=== PATIENT | female | born 1965 | race African-American/Black ===

== ENCOUNTER 2023-05-12 14:38 | Outpatient (AMB) | payer MEDICAID, SELFPAY ==
--- NOTE | 2023-05-12 14:40 | A.OFFVIS_ITS ---
Intake Vital Signs 05/12/23 14:43 Height 5 ft 5 in Weight 252 lb 4 oz BMI 42.0 BP 140/84 H Blood Pressure Location Rt brachial Position Sitting Pulse 76 Pulse Source Pulse Oximeter Pulse Oximetry (%) 98 Oxygen Delivery Method Room Air Intake Visit Reasons: E-SCIENTIFIC AIDE: Insomnia/Snoring - Confirmed Intake Note: Pt presents today cc insomnia and snoring Allergies Unable to Assess Allergy (Unverified 05/12/23 14:46) HPI HPI Comments History of Present Illness Details 58 y/o female patient presents for new i n-person visit for sleep consultation. Pt reports difficulty falling asleep and staying sleep. She watches movie until late night, and falls asleep and also wakes up every couple of hours. She has frequent gasping arousals, and having daytime sleepiness. She used to smoke a pack a day, now she cut down to 10 cigarets a day. Pt states that her mind is racing and can't stop thinking. Sleep questionnaire: Have you ever been diagnosed with a sleep disorder? Insomnia. Have you ever had a sleep study in the past? No. Have you ever been treated for a sleep disorder? Yes, medication. Do you take medications for a sleep disorder? Trazodone 25 mg. Do you snore? Don't know. Do you wake up gasping at night? Yes. Do you have episodes of apneas? No. If yes, are they witnessed? No, sleeps alone. Do you have episodes of nocturnal chest pain or dyspnea? Yes. Do you have difficulty initiating sleep? Yes. Do you have difficulty maintaining sleep? Yes. Do you wake up tired? Yes. Do you have headaches upon awakening? Yes. Do you wake up with dry mouth or throat? Yes. Do you have GERD? Yes. Do you have nocturia? Yes. Do you have nocturnal leg cramps? Yes, sometimes. Do you have symptoms of restless legs? No. Do you act out your dreams? No. Sleep hygiene questionnaire: What is your usual sleep routine? Usual bedtime is at N/A; Usual wake up time is at 5 am. Do you take naps? No. Is your sleep environment cool, dark, and quiet? Yes. Do you exercise? No. Do you take caffeine or other stimulants? Tea. Do you use electronics in bed? Yes, watches TV until she falls asleep. What is your work schedule? 8 am to 2 pm. Hypersomnolence questionnaire: Do you have daytime tiredness or fatigue? Yes. Do you easily fall asleep when inactive? No. Have you ever had episodes of sudden weakness? No. Have you ever had episodes of sudden weakness associated with strong emotions? No. PFSH Family History (Updated 05/12/23 @ 14:55 by Darcy Patel) Mother Cervical cancer Review of Systems Const All systems reviewed & are unremarkable except as noted in HPI and below ENT Reports Normal hearing present Neuro Reports Normal hearing present Physical Exam Vital Signs: Last Vital Signs Pulse 76 05/12/23 14:43 BP 140/84 H 05/12/23 14:43 Pulse Ox 98 05/12/23 14:43 Oxygen Delivery Method Room Air 05/12/23 14:43 BMI result Body Mass Index 42.0 Const General: cooperative and tired appearing Nutritional Appearance: obese Orientation/consciousness: patient oriented x3 Neck Neck: Yes full ROM and Yes supple Resp Effort & Inspection: normal respiratory effort and able to speak in complete sentences Neuro General: patient oriented x3 Cranial nerves: Yes Bilaterally intact EOM present, Yes Normal facial strength present, Yes Midline tongue present, Yes Symmetric palate elevation present, Yes Normal hearing present, Yes Ability to bilaterally rotate head present and Yes Ability to bilaterally elevate shoulders present Cognition (Neuro): normal cognition Gait exam (Neuro): Antalgic gait present Motor exam (neuro): 5/5 motor strength present throughout, Pronator motor function not present and no tremor noted Psych Appearance: grossly normal Mental Status: mental status grossly normal Speech and movement: Normal speech and movement present Affect: normal affect Attitude: cooperative Assessment & Plan Assessment & Plan (1) Obesity, Class III, BMI 40-49.9 (morbid obesity): Code(s): E66.01 - Morbid (severe) obesity due to excess calories (2) Daytime sleepiness: Code(s): R40.0 - Somnolence (3) Snoring: Code(s): R06.83 - Snoring (4) Difficulty sleeping: Code(s): G47.9 - Sleep disorder, unspecified (5) Insomnia: Code(s): G47.00 - Insomnia, unspecified Plan Pt is advised to undergo in lab sleep study to assess for sleep apnea. Will f/u with pt after study to discuss results and appropriate treatment options. Sleep hygiene education provided. Advised patient to limit watching TV before bedtime, and reduce smoking in the evening. May try Calm Sleep magnesium supplement to promote sleep. Wt reduction advised. Pt to call with any worsening concerns or questions. Orders: Orders RT PSG in-lab sleep study Today E66.01 - Morbid (severe) obesity due to excess calories, G47.00 - Insomnia, unspecified, G47.9 - Sleep disorder, unspecified, R06.83 - Snoring, R40.0 - Somnolence Coding Level of Care Code New Pt Level 3 (70345) Diagnoses Obesity, Class III, BMI 40-49.9 (morbid obesity) E66.01 Daytime sleepiness R40.0 Snoring R06.83 Difficulty sleeping G47.9 Insomnia G47.00
[2023-05-12 14:43] VITALS: BP 140/84; PULSE 76; O2SAT 98; BMI 42.0
== END 2023-05-12 15:14 | disposition home or self-care (01) ==
PROVIDERS: PCP Nurse Practitioner; Visit Provider Nurse Practitioner Family
DX: E66.01 Morbid (severe) obesity due to excess calories (principal); R40.0 Somnolence; R06.83 Snoring; G47.9 Sleep disorder, unspecified; G47.00 Insomnia, unspecified
CPT/HCPCS: 99203

== ENCOUNTER → 2023-05-12 14:38 | Outpatient (BNVA) | payer MEDICAID, SELFPAY | PROVIDERS: PCP Nurse Practitioner; Visit Provider Nurse Practitioner Family | DX: G47.00 Insomnia, unspecified (principal); G47.9 Sleep disorder, unspecified; R06.83 Snoring; R40.0 Somnolence; E66.01 Morbid (severe) obesity due to excess calories; Z68.41 Body mass index [BMI] 40.0-44.9, adult | CPT/HCPCS: 99212 ==

== ENCOUNTER → 2023-07-09 19:30 | Outpatient (REF) | payer MEDICAID, SELFPAY | LOC: HO.SL 19:30 | PROVIDERS: PCP Nurse Practitioner; Visit Provider Nurse Practitioner Family | DX: G47.00 Insomnia, unspecified (principal); R06.83 Snoring; R40.0 Somnolence; E66.01 Morbid (severe) obesity due to excess calories; G47.33 Obstructive sleep apnea (adult) (pediatric) | CPT/HCPCS: 95810 ==

== ENCOUNTER → 2023-07-10 00:48 | Outpatient (BNV) | payer MEDICAID, SELFPAY | PROVIDERS: PCP Nurse Practitioner; Visit Provider Psychiatry & Neurology Neurology | DX: G47.33 Obstructive sleep apnea (adult) (pediatric) (principal) | CPT/HCPCS: 95810 ==

== ENCOUNTER → 2023-09-01 19:30 | Outpatient (REF) | payer MEDICAID, SELFPAY | LOC: HO.SL 19:30 | PROVIDERS: PCP Nurse Practitioner; Visit Provider Nurse Practitioner Family | DX: G47.33 Obstructive sleep apnea (adult) (pediatric) (principal) | CPT/HCPCS: 95811 ==

== ENCOUNTER → 2023-09-01 22:08 | Outpatient (BNV) | payer MEDICAID, SELFPAY | PROVIDERS: PCP Nurse Practitioner; Visit Provider Psychiatry & Neurology Neurology | DX: G47.33 Obstructive sleep apnea (adult) (pediatric) (principal) | CPT/HCPCS: 95811 ==

== ENCOUNTER 2023-09-09 14:53 | Outpatient (AMB) | payer MEDICAID, SELFPAY ==
--- NOTE | 2023-09-09 14:57 | A.OFFVIS_ITS ---
Intake Vital Signs 09/09/23 15:08 Height 5 ft 5 in Weight 252 lb 8 oz BMI 42.0 BP 134/80 Blood Pressure Location Lt brachial Position Sitting Pulse 80 Pulse Source Pulse Oximeter Pulse Oximetry (%) 98 Oxygen Delivery Method Room Air Intake Visit Reasons: 4 mnts f/u appt for insomnia-CONF Intake Note: Patients presents for 4 month f/u. Allergies Unable to Assess Allergy (Verified 09/09/23 15:04) HPI HPI Comments History of Present Illness Details 58 y/o female patient presents for follo w up of sleep study. The PSG sleep study result was significant for a severe degree of sleep apnea with increased severity in REM. The AHI was 43/hr, REM AHI was 86/hr and oxygen toño was 78%. Pt underwent CPAP titration study, and the result is pending. Pt reports she slept really well during the CPAP titration study. Pt still smokes cigarettes before bedtime to relax and sleep. PFSH Family History Mother Cervical cancer Social History (Updated 09/09/23 @ 15:08 by Zoe Wheeler CMA) Alcohol intake: current Comment: Rarely Patient Tobacco Use Status: Former Tobacco user Tobacco use type: Cigarette Cigarettes Per Day: 7 Years Smoked: 40 Review of Systems Const All systems reviewed & are unremarkable except as noted in HPI and below ENT Reports Normal hearing present Neuro Reports Normal hearing present Physical Exam Vital Signs: Last Vital Signs Pulse 80 09/09/23 15:08 BP 134/80 09/09/23 15:08 Pulse Ox 98 09/09/23 15:08 Oxygen Delivery Method Room Air 09/09/23 15:08 BMI result Body Mass Index 42.0 Const General: cooperative and tired appearing Nutritional Appearance: obese Orientation/consciousness: patient oriented x3 Neck Neck: Yes full ROM and Yes supple Resp Effort & Inspection: normal respiratory effort and able to speak in complete sentences Neuro General: patient oriented x3 Cranial nerves: Yes Bilaterally intact EOM present, Yes Normal facial strength present, Yes Midline tongue present, Yes Symmetric palate elevation present, Yes Normal hearing present, Yes Ability to bilaterally rotate head present and Yes Ability to bilaterally elevate shoulders present Cognition (Neuro): normal cognition Gait exam (Neuro): Antalgic gait present Motor exam (neuro): 5/5 motor strength present throughout, Pronator motor function not present and no tremor noted Psych Appearance: grossly normal Mental Status: mental status grossly normal Speech and movement: Normal speech and movement present Affect: normal affect Attitude: cooperative Assessment & Plan Assessment & Plan (1) ANGELINE (obstructive sleep apnea): Comment: Severe degree of sleep apnea with increased severity in REM sleep. AHI was 43/hr, REM AHI was 86/hr and oxygen toño was 78% Code(s): G47.33 - Obstructive sleep apnea (adult) (pediatric) Plan Titration study result was pending. Will order CPAP when the result available. Stressed CPAP compliance, use CPAP nightly and more than 4hrs. Advised patient to cut down smoking and practice good sleep hygiene. Coding Level of Care Code Est Pt Level 3 (68645) Diagnoses ANGELINE (obstructive sleep apnea) G47.33
[2023-09-09 15:08] VITALS: BP 134/80; PULSE 80; O2SAT 98; BMI 42.0
== END 2023-09-09 15:20 | disposition home or self-care (01) ==
PROVIDERS: PCP Nurse Practitioner; Visit Provider Nurse Practitioner Family
DX: G47.33 Obstructive sleep apnea (adult) (pediatric) (principal)
CPT/HCPCS: 99213

== ENCOUNTER → 2023-09-09 14:53 | Outpatient (BNVA) | payer MEDICAID, SELFPAY | PROVIDERS: PCP Nurse Practitioner; Visit Provider Nurse Practitioner Family | DX: G47.33 Obstructive sleep apnea (adult) (pediatric) (principal) | CPT/HCPCS: 99212 ==

== ENCOUNTER 2023-11-10 10:19 | Outpatient (AMB) | payer MEDICAID, SELFPAY ==
--- NOTE | 2023-11-10 10:19 | MHC.OFFVIS ---
Vital Signs 11/10/23 10:21 Height 5 ft 5 in Weight 255 lb BMI 42.4 BP 126/82 Blood Pressure Location Rt brachial Position Sitting Pulse 65 Pulse Source Pulse Oximeter Pulse Oximetry (%) 99 Oxygen Delivery Method Room Air Intake Visit Reasons: f/u insomnia - CONF w/address Intake Note: Patient presents for insomnia. Allergies Unable to Assess Allergy (Verified 11/10/23 10:22) HPI Comments Details: 58 y/o female patient presents for follow up of sleep study. The PSG sleep study result was significant for a severe degree of sleep apnea with increased severity in REM. The AHI was 43/hr, REM AHI was 86/hr and oxygen toño was 78%. Pt underwent CPAP titration study, and started CPAP at 8cmH2O. The CPAP compliance and therapy response (10/11/23-11/09/23) reviewed. The usage days 100% and the average usage hours 8 hrs. The residual AHI was 0.6/hr. Pt still smokes cigarettes before bedtime to relax and sleep. She sleeps well with CPAP for 7-8 hrs, rested, and daytime sleepiness has improved. PFSH Family History Mother Cervical cancer Social History Alcohol intake: current Comment: Rarely Patient Tobacco Use Status: Former Tobacco user Tobacco use type: Cigarette Cigarettes Per Day: 7 Years Smoked: 40 Review of Systems Const All systems reviewed & are unremarkable except as noted in HPI and below ENT Reports Normal hearing present Neuro Reports Normal hearing present Physical Exam Vital Signs: Last Vital Signs Pulse 65 11/10/23 10:21 BP 126/82 11/10/23 10:21 Pulse Ox 99 11/10/23 10:21 Oxygen Delivery Method Room Air 11/10/23 10:21 BMI result Body Mass Index 42.4 Const General: cooperative Nutritional Appearance: obese Orientation/consciousness: patient oriented x3 Neck Neck: Yes full ROM and Yes supple Resp Effort & Inspection: normal respiratory effort and able to speak in complete sentences Neuro General: patient oriented x3 Cranial nerves: Yes Bilaterally intact EOM present, Yes Normal facial strength present, Yes Midline tongue present, Yes Symmetric palate elevation present, Yes Normal hearing present, Yes Ability to bilaterally rotate head present and Yes Ability to bilaterally elevate shoulders present Cognition (Neuro): normal cognition Gait exam (Neuro): Antalgic gait present Motor exam (neuro): 5/5 motor strength present throughout, Pronator motor function not present and no tremor noted Psych Appearance: grossly normal Mental Status: mental status grossly normal Speech and movement: Normal speech and movement present Affect: normal affect Attitude: cooperative Assessment & Plan Assessment & Plan (1) ANGELINE (obstructive sleep apnea): Comment: Severe degree of sleep apnea with increased severity in REM sleep. AHI was 43/hr, REM AHI was 86/hr and oxygen toño was 78% Code(s): G47.33 - Obstructive sleep apnea (adult) (pediatric) Category: Medical Plan Advised patient to continue to use CPAP at 8cmH2O as patient experiences good clinical effects, better quality sleep and daytime sleepiness has resolved. Stressed compliance, use CPAP nightly and more than 4 hrs. Advised patient to reduce smoking. Coding Level of Care Code Est Pt Level 3 (17947) Diagnoses ANGELINE (obstructive sleep apnea) G47.33
[2023-11-10 10:21] VITALS: BP 126/82; PULSE 65; O2SAT 99; BMI 42.4
== END 2023-11-10 10:38 | disposition home or self-care (01) ==
PROVIDERS: Absent Provider Nurse Practitioner Family; PCP Nurse Practitioner; Visit Provider Nurse Practitioner Family
DX: G47.33 Obstructive sleep apnea (adult) (pediatric) (principal)
CPT/HCPCS: 99213

== ENCOUNTER → 2023-11-10 10:19 | Outpatient (BNVA) | payer MEDICAID, SELFPAY | PROVIDERS: Absent Provider Nurse Practitioner Family; PCP Nurse Practitioner; Visit Provider Nurse Practitioner Family | DX: G47.33 Obstructive sleep apnea (adult) (pediatric) (principal) | CPT/HCPCS: 99212 ==

== ENCOUNTER 2024-05-31 09:33 | Outpatient (AMB) | payer OTHER, SELFPAY ==
[2024-05-31 09:42] VITALS: BP 124/80; PULSE 72; O2SAT 99; BMI 42.8
--- NOTE | 2024-05-31 09:42 | A.OFFVIS_ITS ---
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 Pt reports she is using her CPAP nightly or during her naps. Her sleep schedule is varied, she states that this is because she does not have anything to do. However, overall she is sleeping better overall and feels the CPAP helps. She notes that she has had migraine since childhood. Her migraine- can see colorful or black spots, right or left and frontal throbbing or tightness or pounding (like someone has just hit her) pain a/w photophobia, phonophobia, sounds like wind blowing, congestion/nasal drip. She reports since she is sleeping more and using her CPAP, she is having less bothersome migraine attacks. She does not like to take medications in general, but states she is open to trying migraine tx and she is open to using devices. She is having 2-3 headache days per week. One of her son's has migraines his whole life as well. Has remote h/o gastritis from frequent use of NSAIDs. BP normotensive. No known CAD. She does still smoke cigarettes- 4-8 per day. [facility] Compliance Report Usage 05/01/2024 - 05/30/2024 Usage days 30/30 days (100%) >= 4 hours 30 days (100%) Average usage (days used) 8 hours 21 minutes AirSense 10 AutoSet Serial number [id number] Mode CPAP Set pressure 8 cmH2O EPR Fulltime EPR level 2 Therapy Leaks - L/min Median: 0.0 95th percentile: 5.7 Maximum: 83.1 Events per hour AI: 1.1 HI: 0.2 AHI: 1.3 Apnea Index Central: 0.0 Obstructive: 0.3 Unknown: 0.8 RERA Index 0.3 PFSH Family History Mother Cervical cancer Social History Alcohol intake: current Comment: Rarely Patient Tobacco Use Status: Former Tobacco user Tobacco use type: Cigarette Cigarettes Per Day: 7 Years Smoked: 40 Physical Exam Vital Signs: Last Vital Signs Pulse 72 05/31/24 09:42 BP 124/80 05/31/24 09:42 Pulse Ox 99 05/31/24 09:42 Oxygen Delivery Method Room Air 05/31/24 09:42 BMI result Body Mass Index 42.8 Const General: no acute distress Orientation/consciousness: patient oriented x3 HEENT Other: Mallampati stage Resp Effort & Inspection: normal respiratory effort and able to speak in complete sentences Neuro Other: Photophobia General: patient oriented x3 and moves all extremities Cranial nerves: Yes CN's II-XII intact bilaterally Gait exam (Neuro): Normal gait present Motor exam (neuro): 5/5 motor strength present throughout Psych Appearance: grossly normal Mental Status: mental status grossly normal Speech and movement: Normal speech and movement present Attitude: cooperative Assessment & Plan Assessment & Plan (1) ANGELINE (obstructive sleep apnea): Comment: Severe degree of sleep apnea with increased severity in REM sleep. AHI was 43/hr, REM AHI was 86/hr and oxygen toño was 78% Code(s): G47.33 - Obstructive sleep apnea (adult) (pediatric) Category: Medical (2) Migraine with aura: Code(s): G43.109 - Migraine with aura, not intractable, without status migrainosus Category: Medical Plan For ANGELINE: Continue CPAP 8 cmH2O w/ EPR 2 nightly > 4 hours, as pt continues to have good clinical effect from use.. Clean CPAP machine and supplies routinely. Change CPAP supplies routinely. We have advised you to have the following exams: For overall headache management: It is important to practice good self-care, including but not limited to eating a healthy diet, drinking enough fluids (typically 64 oz per day), maintaining a good sleep routine, and engaging in regular physical activity (typically 30-45 minutes of moderate physical activity 5 days per week). Light sensitivity tips: Blue light filtering glasses, green glasses, green light therapy have all been shown to reduce light sensitivity. Information shared on enuromodulation devices- suach as Cefaly or HeadaTerm 2 eTNS devices. For acute headache treatment: It is important to take as needed acute medications at the first sign of headache, however you want to avoid taking most as needed headache too often as this can lead to medication overuse/adaptation headaches. Trial Sumatriptan 100mg tab, 1/2 - 1 tab (50-100mg) at onset of headache, may repeat in 2 hours. Max of 2 tabs (200mg) per 24 hours. May adjunct with OTC Tylenol 650mg q 4 hours, Ibuprofen 600mg q 6 hours, or Naproxen 440mg q 12 hrs prn. Potential adverse effects of triptans, include but are not limited to nausea, fatigue, chest tightness/tingling (usually passes within a few minutes), medication overuse headaches. Previous acute migraine medication trials: No prescription trails at this time. Acute migraine medication contraindications: [None at this time. For headache prevention medication: Preventative medications should be taken routinely as prescribed for best effect, it may take several weeks to see full effect. Start Riboflavin 400mg qam Start Magnesium 400mg qhs Previous migraine prevention medication trials: None at this time Migraine prevention medication contraindications: None at this time Pt to follow-up in 6 months or sooner prn. Medications: New riboflavin (vitamin B2) 400 mg PO DAILY 30 days 30 tabs 6RF magnesium oxide may hold for loose stools 400 mg PO BEDTIME 30 days 30 tabs 6RF sumatriptan succinate (0.5 - 1 x 100 mg) 50 - 100 mg orally at onset of headache, may repeat in 2 hrs PRN; max 2 tabs per day or 4 tabs/week (may take with Tylenol or Ibuprofen) 30 days 12 tabs 6RF migraine headache Coding Level of Care Code Est Pt Level 4 (65351) Diagnoses ANGELINE (obstructive sleep apnea) G47.33 Migraine with aura G43.109
== END 2024-05-31 10:41 | disposition home or self-care (01) ==
PROVIDERS: PCP Nurse Practitioner; Visit Provider Nurse Practitioner Family
DX: G47.33 Obstructive sleep apnea (adult) (pediatric) (principal); G43.109 Migraine with aura, not intractable, without status migrainosus
CPT/HCPCS: 99214

== ENCOUNTER → 2024-05-31 09:33 | Outpatient (BNVA) | payer OTHER, SELFPAY | PROVIDERS: PCP Nurse Practitioner; Visit Provider Nurse Practitioner Family | DX: G47.33 Obstructive sleep apnea (adult) (pediatric) (principal); G43.109 Migraine with aura, not intractable, without status migrainosus | CPT/HCPCS: 99212 ==

== ENCOUNTER 2024-11-29 10:05 | Outpatient (AMB) | payer OTHER, SELFPAY ==
--- NOTE | 2024-11-29 10:48 | A.OFFVIS_ITS ---
Vital Signs 11/29/24 10:49 Height 5 ft 5 in BP 126/82 Blood Pressure Location Lt brachial Position Sitting Pulse 61 Pulse Source Pulse Oximeter Pulse Oximetry (%) 98 Oxygen Delivery Method Room Air Intake Visit Reasons: Follow Up 6mo Intake Note: Patient presents 6 month follow up for ANGELINE/Migraines- compliance in chart. Adult Nurse Practitioner Required: No Accompanied by: Self / Same As Patient Allergies Unable to Assess Allergy (Verified 11/29/24 10:49) Medication List - Last Reconciled 11/29/24 by CLIFTON Ramirez acetaminophen (Tylenol) 325 mg PO QID PRN cetirizine (All Day Allergy (cetirizine)) 10 mg PO DAILY PRN diclofenac sodium 1% (Arthritis Pain (diclofenac)) 2 grams topical QID fluticasone furoate 50 mcg/actuation inhalation magnesium oxide 400 mg PO BEDTIME 30 days ondansetron 8 mg PO Q12H riboflavin (vitamin B2) 400 mg PO DAILY 30 days sumatriptan succinate 50 - 100 mg orally at onset of headache, may repeat in 2 hrs PRN; max 2 tabs per day or 4 tabs/week (may take with Tylenol or Ibuprofen) 30 days trazodone 25 mg PO DAILY HPI Comments Details: 59-yr-old female presents for follow-up visit of sleep apnea. Pt recently underwent a ? Cyst excision from base of left palm (at base of 2nd /3rd fingers), which was healing well but pt states incision recently dehisced when she was trying to open medication bottle- by Dr Reji Joyce at [place]. Pt reports she is using her CPAP nightly or during her naps. Her sleep schedule is varied, she states that this is because she does not have anything to do. However, overall she is sleeping better overall and feels the CPAP helps. She is having less migraine attacks, now 1 attack per week, which lasts 2 days. She has purchased arias-tinted FL-41 blue light blocking glasses. She plans to buy herself a migraine cooling cap. She did not receive riboflavin. She states the sumatriptan is helpful, but makes her sleepy- which she does not mind, as she lays down and applies her CPAP. She notes that she has had migraine since childhood. Baseline migraine- can see colorful or black spots, right or left and frontal throbbing or tightness or pounding (like someone has just hit her) pain a/w photophobia, phonophobia, sounds like wind blowing, congestion/nasal drip. Family h/o headache: One of her son's has migraines his whole life as well. Pertinent PMH: Has remote h/o gastritis from frequent use of NSAIDs. Tobacco use. BP remains normotensive. No known history of CAD. [facility] Compliance Report Usage 08/24/2024 - 11/21/2024 Overall usage days 100% Usage > 4 hours 99% Average usage (days used) 8 hours 26 minutes AirSense 10 AutoSet Serial number [id number] Mode CPAP Set pressure 8 cmH2O w/ EPR 2 Median Leaks - 0 L/min Residual AHI: 0.7/hour PFSH Surgical History (Updated 11/29/24 @ 10:51 by Gabriela Escobar CMA) H/O hand surgery Family History Mother Cervical cancer Social History Alcohol intake: current Comment: Rarely Patient Tobacco Use Status: Former Tobacco user Tobacco use type: Cigarette Cigarettes Per Day: 7 Years Smoked: 40 Physical Exam Vital Signs: Last Vital Signs Pulse 61 11/29/24 10:49 BP 126/82 11/29/24 10:49 Pulse Ox 98 11/29/24 10:49 Oxygen Delivery Method Room Air 11/29/24 10:49 Const General: no acute distress Orientation/consciousness: patient oriented x3 HEENT Other: Left 2nd and 3rd fingers taped together Resp Effort & Inspection: normal respiratory effort and able to speak in complete sentences Neuro General: patient oriented x3 and moves all extremities Cranial nerves: Yes CN's II-XII intact bilaterally Gait exam (Neuro): Normal gait present Motor exam (neuro): 5/5 motor strength present throughout Psych Appearance: grossly normal Mental Status: mental status grossly normal Speech and movement: Normal speech and movement present Attitude: cooperative Assessment & Plan Assessment & Plan (1) ANGELINE (obstructive sleep apnea): Comment: Severe degree of sleep apnea with increased severity in REM sleep. AHI was 43/hr, REM AHI was 86/hr and oxygen toño was 78% Code(s): G47.33 - Obstructive sleep apnea (adult) (pediatric) Category: Medical (2) Migraine with aura: Code(s): G43.109 - Migraine with aura, not intractable, without status migrainosus Category: Medical Qualifiers: Status migrainosus presence: without status migrainosus Intractability: not intractable Qualified Code(s): G43.109 - Migraine with aura, not intractable, without status migrainosus Plan For ANGELINE: Continue CPAP 8 cmH2O w/ EPR 2 nightly > 4 hours, as pt continues to have good clinical effect from use.. Clean CPAP machine and supplies routinely. Change CPAP supplies routinely. Use distilled water in your CPAP water reservoir. For overall headache management: It is important to practice good self-care, including but not limited to eating a healthy diet, drinking enough fluids (typically at least 64 oz per day), maintaining a good sleep routine, and engaging in regular physical activity (typically 30-45 minutes of moderate physical activity 5 days per week). Continue using blue light filtering glasses. Information shared on nonpharmacological migraine treatment interventions, such as neuromodulation devices- such as Cefaly or HeadaTerm 2 eTNS devices. For acute headache treatment: It is important to take as needed acute medications at the first sign of headache, however you want to avoid taking most as needed headache too often as this can lead to medication overuse/adaptation headaches. Continue Sumatriptan 100mg tab, 1/2 - 1 tab (50-100mg) at onset of headache, may repeat in 2 hours. Max of 2 tabs (200mg) per 24 hours. May adjunct with OTC Tylenol 650mg q 4 hours, Ibuprofen 600mg q 6 hours, or Naproxen 440mg q 12 hrs prn. Potential adverse effects of triptans, include but are not limited to nausea, fatigue, chest tightness/tingling (usually passes within a few minutes), medication overuse headaches. Previous acute migraine medication trials: No prescription trails at this time. Acute migraine medication contraindications: None at this time. For headache prevention medication: Preventative medications should be taken routinely as prescribed for best effect, it may take several weeks to see full effect. Again start Riboflavin 400mg qam Start Magnesium 400mg qhs Previous migraine prevention medication trials: None at this time Migraine prevention medication contraindications: None at this time Pt to follow-up in 6 months or sooner prn. Medications: Changed From magnesium oxide may hold for loose stools 400 mg PO BEDTIME 30 days 30 tabs 6RF G43.109 - Migraine with aura, not intractable, without status migrainosus To magnesium oxide may hold for loose stools 400 mg PO BEDTIME 90 days 90 tabs 3RF G43.109 - Migraine with aura, not intractable, without status migrainosus From riboflavin (vitamin B2) 400 mg PO DAILY 30 days 30 tabs 6RF G43.109 - Migraine with aura, not intractable, without status migrainosus To riboflavin (vitamin B2) 400 mg PO DAILY 90 days 90 tabs 3RF G43.109 - Migraine with aura, not intractable, without status migrainosus Refilled riboflavin (vitamin B2) 400 mg PO DAILY 30 days 30 tabs 6RF sumatriptan succinate (0.5 - 1 x 100 mg) 50 - 100 mg orally at onset of headache, may repeat in 2 hrs PRN; max 2 tabs per day or 4 tabs/week (may take with Tylenol or Ibuprofen) 30 days 12 tabs 6RF migraine headache Coding Level of Care Code Est Pt Level 4 (93220) Diagnoses ANGELINE (obstructive sleep apnea) G47.33 Migraine with aura and without status migrainosus, not intractable G43.109 Status migrainosus presence: without status migrainosus Intractability: not intractable
[2024-11-29 10:49] VITALS: BP 126/82; PULSE 61; O2SAT 98
--- OUTSIDE RECORDS SUMMARY | 2024-11-29 11:20 | XMS_ITS | Clinical Summary ---
Author Organization [facility] Address [address] [place] [address] Care Team Providers Care Rail Maintenance Worker Name Role Phone ZamudioAlicia MATHEW Primary Care Provider Source Comments PLEASE NOTE, if this patient is a minor, it may be UNLAWFUL to discuss sensitive information that is contained in these records (such as FAMILY PLANNING, MENTAL HEALTH or SUBSTANCE ABUSE) with the minor patient's parent or other person without the patient's specific authorization.[facility] Allergies Active Allergy Reactions Criticality Noted Date Comments Lactose Diarrhea 07/25/2015 Medications traZODone (DESYREL) 50 mg tabletIndications: Other insomnia Take 1 Tablet by mouth nightly at bedtime as needed for sleep 30 Tablet 2 08/23/19 22 Active cetirizine (ZYRTEC) 10 mg tabletIndications: Allergic rhinitis, unspecified seasonality, unspecified trigger Take 1 Tablet by mouth once daily 90 Tablet 3 01/19/20 22 Active bismuth subsalicylate (PEPTO BISMOL) 262 mg/15 mL suspensionIndicati ons:Viral gastroenteritis Take 15 mL by mouth every 6 (six) hours as needed for indigestion 236 mL 04/29/20 22 Active fluticasone (FLONASE) 50 mcg/actuation nasal sprayIndications:A llergic rhinitis, unspecified seasonality, unspecified trigger SPRAY 1 SPRAY INTO EACH NOSTRIL TWICE DAILY. 16 mL 10/24/19 23 Active atorvastatin (LIPITOR) 10 mg tabletIndications: Hyperlipidemia, unspecified hyperlipidemia type TAKE 1 TABLET BY MOUTH EVERY DAY 90 Tablet 07/28/19 24 Active blood pressure monitorIndications :Essential hypertension Pt with hypertension, Dx: I10, needs to check bp daily. Lifetime need. 1 Kit 11/02/19 24 Active MISCELLANEOUS MEDICAL SUPPLY MISCIndications:Es sential hypertension by miscellaneous route daily Please dispense one L BP monitor. Dx: HTN Duration: lifetime 1 Each 11/12/19 24 Active EPINEPHrine (EPIPEN) 0.3 mg/0.3 mL pen injectorIndication s:Allergic reaction, initial encounter Inject 0.3 mL into the muscle as needed for anaphylaxis may repeat every ~5 to 15 minutes (or sooner if clinically indicated) if patient does not adequately respond 2 Each 1 07/29/19 25 Active lisinopriL 10 mg tabletIndications: Primary hypertension TAKE 1 TABLET BY MOUTH EVERY DAY 90 Tablet 3 08/02/19 25 Active acetaminophen (TYLENOL) 500 mg capsule TAKE 2 TABLETS EVERY 8 HOURS PRN FOR HEADACHES. 90 Capsule 1 11/23/19 25 Active ibuprofen 600 mg tablet Take 1 Tablet by mouth 4 (four) times daily as needed for mild pain 20 Tablet 11/23/19 25 Active ibuprofen 600 mg tabletIndications: Exostosis, jaw Take 1 Tablet by mouth 4 (four) times daily as needed for mild pain 20 Tablet 02/21/20 22 025 Disconti nued(Reo rder (E-Cance l Not Sent)) acetaminophen (TYLENOL) 500 mg capsuleIndications :Chronic nonintractable headache, unspecified headache type TAKE 2 TABLETS EVERY 8 HOURS PRN FOR HEADACHES. 90 Capsule 1 05/03/20 24 025 Disconti nued(Reo rder (E-Cance l Not Sent)) Active Problems Problem Noted Date Diagnosed Date Lumbar spondylolysis 09/06/2024 Prediabetes 05/04/2024 Chronic nonintractable headache 08/23/2021 Other insomnia 08/23/2021 Encounter for gynecological examination with Papanicolaou smear of cervix 08/21/2021 Overview (08/23/2021): PAP 08/21/2021 Negative for intraepithelial lesion or malignancy. HPV Negative. Eczema 09/07/2017 Obesity 04/28/2016 Hip pain, right 11/27/2015 Nocturnal polyuria 07/25/2015 IBS (irritable bowel syndrome) 07/25/2015 Lactose intolerance 07/25/2015 S/P colonoscopy 06/18/2015 Overview (06/18/2015): Small sigmoid polyp -resected - ascending colon diverticulosis. - 05/08/[facility]. Smoker 03/30/2014 Low back pain 03/14/2014 Overview (05/02/2022): 05/02/22: Pt xray showed new mild grade 1, 2.6 mm spondylithsis (A spinal disorder in which one vertebra (spinal bone) slips onto the vertebra below it. This causes pain in lower back or legs) at L3-L4, and another 1.8 mm at L4-L5. These are new since her last xray in 2016 Xray pelvis - mild lumbar degenerative changes in lumbar spine. Gastritis 12/01/2013 GERD (gastroesophageal reflux disease) 4 Overview (06/13/2015): egd- atrophic erythematous distal duodenitis on 12/20/[address]david arias Colonoscopy -05/08/15 - sigmoid polyp, diverticulosis of right colon. yperplastic polyp Rpt in 10 years. HTN (hypertension) 09/12/2013 Resolved Problems Problem Noted Date Diagnosed Date Resolved Date Smoking trying to quit 01/08/201609/07 Vaginal itching 05/11/2015 09/07/2017 Dermatitis 05/11/2015 09/07/2017 Dysuria 05/11/2015 09/07/2017 Vaginitis due to Jasmin 05/01/2015 Vaginitis and vulvovaginitis 01/10/2015 07/25/2015 Missed periods 03/14/2014 05/03/2024 BV (bacterial vaginosis) 10/27/201305/2018 Overview (11/08/2013): Gc,chlamydia-neg Pap- neg for cancer, hyperkeratosis present -high risk- not detected Routine general medical exam ination at a health care facility 09/12/2013 09/07/2017 Perforation of ear drum, left 09/12/2013 04/27/2023 Encounters Date Type Department Care Team Description 11/22/2024 2:40 PM EDT Telemedicine Visit [address] [phone] Alicia Zamudio NP Lumbar spondylolysis (Primary Dx) 11/22/2024 Interim Notes [address] [phone] Alicia Zamudio NP 09/06/2024 2:40 PM EST Telemedicine Visit [address] [phone] Alicia Zamudio, MATHEW Chronic right-sided low back pain with bilateral sciatica (Primary Dx); Lumbar spondylolysis 09/03/2024 1:20 PM EST Office Visit [address] [phone] Austin Lobo PA-C Ganglion cyst of wrist, right (Primary Dx); Ganglion cyst of finger of left hand from Last 3 Months Immunizations Immunization Administration Dates Next Due PFIZER COVID VACCINE, PURPLE CAP, 12+ 05/08/2021 ,04/17/2021 Pfizer-BioNTech COVID-19 Vac cine Bivalent, (REAL PFIZER-BIONTECH COVID-19 VACCINE BIVALENT, (REAL CAP 04/11/2022 TDAP 04/28/2016 Family History Medical History Relation Name Comments Cancer Father brain tumor Father Cancer Mother Cervical Cancer Mother Cancer Other Diabetes Paternal Grandfather Hypertension Paternal Grandmother Relation Name Status Comments Father Alive Mother Alive Other Paternal Grandfather Paternal Grandmother Social History Tobacco Use Types Packs/Day Years Used Date Smoking Tobacco: Every Day Cigarettes Passive Smoke Exposure: Never Smokeless Tobacco: Never Tobacco Cessation:Ready to Q uit: No; Counseling Given: Yes Comments:about 9 a day Alcohol Use Standard Drinks/Week Comments Yes 0 (1 standard drink = 0.6 oz pur e alcohol) ocassionally Social Connections Answer Date Recorded Connectedness 1 07/29/2024 Financial Resource Strain Answer Date R ecorded Financial Resource Strain 1 2024 Stress Answer Date Recorded Stress 1 07/29/2024 Physical Activity Answer Date Recorded Physical Activity 0 03/05/2019 Food Insecurity Answer Date Recorded Food 1 07/29/2024 Transportation Needs Answer Date Record ed Transportation 1 07/29/2024 Housing Stability Answer Date Recorded Housing 1 07/29/2024 Safety and Environment Answer Date Stephen rded Safety 0 08/21/2021 Utilities Answer Date Recorded Utilities 1 07/29/2024 Employment Answer Date Recorded Stress 0 09/30/2021 Comments No Sex and Gender Information Value Date Recorded Sex Assigned at Female 04/28/2017 9:03 AM PDT Legal Sex Female 11:36 AM PDT Gender Identity Female 04/28/2017 9:03 AM PDT Sexual Orientation Straight 04/28/2017 9: 03 AM PDT 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 Not on file Not on file Not on file Last Filed Vital Signs Vital Sign Reading Time Taken Comments Blood Pressure 153/65 09/03/2024 12:06 PM EST Pulse 63 09/03/2024 12:06 PM EST Temperature 36.7 ??C (98 ??F) 07/29/2024 11:02 AM EST Respiratory Rate 20 09/03/2024 12:06 PM EST Oxygen Saturation 98% 09/03/2024 12:06 PM EST Inhaled Oxygen Concentration - - Weight 116.6 kg (257 lb) 09/03/2024 12:06 PM EST Height 162.6 cm (5' 4 ) 05/03/2024 1:06 PM EDT Body Mass Index 44.11 05/03/2024 1:06 PM EDT Plan of Treatment Upcoming Encounters Date Type Department Care Team (Late st Contact Info) Description 02/27/2025 10:20 AM EDT Office Visit [facility] [address] [place] [address] Sachi Robertaeleanornorman, RHD [address] [place] [address] Health Maintenance Due Date Last Done Comments HPV Screening 1965 Imm-Pneumococcal (1 of 2 - PCV) 01/12/1984 CT Colonography 2010 Fecal DNA 2010 Flexible Sigmoidoscopy 2010 Imm-Zoster, Recombinant (1 of 2) 2015 FIT/gFOBT 05/08/2016 05/08/2015 (Nika matthews by Outside Provider) [id number] ( season) 2024 04/11/2022, 05/08/2021, 04/17/2021 Imm-Influenza (#1) 2024 Cervical Cancer Screening 08/21/2024 Pap + HPV 08/21/2024 08/21/2021 Pap Smear 08/21/2024 08/21/2021, 1109/2016 (Managed by Outside Provider), 05/13/2017 (Managed by Outside Provider), Additional history exists Breast Cancer Screening (Mammogram) 02/26/2025 02/26/2023, 05/19/2017 (Managed by Outside Provider), 05/12/2016 (Managed by Outside Provider), Additional history exists Annual Wellness (Adult): Indicated (All Coverage) 05/03/2025 05/03/2024, 04/27/2023, 06/26/2021, Additional history exists Diabetes Screening 05/03/2025 05/03/2024, 1 , 04/27/2023, Additional history exists Lipid Screening 05/03/2025 05/03/2024, 04/12, 06/26/2021, Additional history exists Tobacco Cessation Counseling (#1) 05/03/2025 05/03/2024, 04/27/2023, 01/29/2023, Additional history exists Colonoscopy 05/08/2025 05/08/2015 (Nika matthews by Outside Provider) Colorectal Cancer Screening 05/08/2025 Anxiety Screening 07/29/2025 07/29/2024 Dental BW 09/01/2025 08/30/2024, 08/0 12/2023, 08/12/2023 Dental Examination 09/01/2025 08/30/2024, 0 02/16/2024, 08/12/2023 Dental Perio Charting 09/01/2025 08/30/2024 , 02/16/2024, 08/12/2023 Dental Prophy 09/01/2025 08/30/2024, 08/0 12/2023, 08/12/2023 Imm-DTaP/Tdap/Td (2 - Td or Tdap) 04/28/2026 016 Dental FMX/Pano 08/14/2028 08/12/2023 HIV Screening Completed 09/14/2013 Hepatitis C Screening Completed 09/14/2013 Alcohol and Drug Screen Completed 07/29/19 25, 05/03/2024, 04/27/2023, Additional history exists Depression Annual Screen Completed 07/29/2024, 08/14 Cervical Ablation/Cold-Knife Conization Discontinued Cervical Cryotherapy Discontinued Colposcopy Discontinued Endometrial Biopsy Discontinued Excision/Leep Discontinued HPV Genotyping Discontinued Imm-Hepatitis B Discontinued Vaginal Pap Discontinued Vulvoscopy Discontinued Procedures Procedure Name Priority Date/Time Associated Diagnosis Comments CARD SCANNED DOCUMENT 11/07/2024 3:00 AM EDT OTHER ORDERS SCANNED DOCUMENT 10/27/2024 3:00 AM EDT REFERRAL TO ORTHOPEDICS Routine 10/13/2024 3:00 AM EDT Ganglion cyst of wrist, right Ganglion cyst of finger of left hand IMAGING SCANNED DOCUMENT 09/29/2024 3:00 AM EDT REFERRAL TO ORTHOPEDICS Routine 09/29/2024 3:00 AM EDT Lumbar spondylolysis COMP PERIODONTAL EVALUATION - NEW/EST PATIENT Routine 08/30/2024 10:20 AM EST Encounter for dental examination BITEWINGS - FOUR RADIOGRAPHIC IMAGES Routine 08/30/2024 10:20 AM EST Encounter for dental examination PROPHYLAXIS - ADULT Routine 08/30/2024 1 0:20 AM EST Encounter for dental examination PERIODIC ORAL EVALUATION ESTABLISHED PATIENT Routine 08/30/2024 10:20 AM EST Encounter for dental examination COMPREHENSIVE METABOLIC PANEL Routine 05/03/2024 1:50 PM EDT Routine general medical examination at a health care facility LIPID PANEL Routine 05/03/2024 1:50 PM EDT Routine general medical examination at a health care facility INTRAORAL - COMP SERIES OF RADIOGRAPHIC IMAGES Routine 08/12/2023 1:00 PM EST Caries of enamel (incipient) Defective dental faith REFERRAL FOR MAMMOGRAM Routine 02/26/2023 3:00 AM EDT Encounter for screening mammogram for breast cancer THINPREP PAP & HPV MRNA E6/E7 RFLX HPV 16,18/[address]/NG Routine 08/21/2021 9:11 AM EST Encounter for gynecological examination with Papanicolaou smear of cervix ANTIBODY HIV-1&HIV-2 SINGLE RESULT Routine 09/14/2013 8:50 AM EST Routine general medical examination at a health care facility HEPATITIS A,B,C PANEL Routine 09/14/2013 8:50 AM EST Routine general medical examination at a health care facility from Last 3 Months or Most Recently Relevant to Health Maintenance Results * CARD SCANNED DOCUMENT (11/07/2024 3:00 AM EDT) 11/07/2024 3:00 AM EDT us Alicia Deo SCAN ECGS Final Result * OTHER ORDERS SCANNED DOCUMENT (10/27/2024 3:00 AM EDT) 10/27/2024 3:00 AM EDT us Alicia Whitlock Valle REFLOW OPERATOR SCAN OTHER ORDERS Final Resu lt * REFERRAL TO ORTHOPEDICS (10/13/2024 3:00 AM EDT) Only the most recent of2 resultswithin the time period is included. 10/13/2024 3:00 AM EDT us Austin Lobo PA-C REFERRAL Final Result * IMAGING SCANNED DOCUMENT (09/29/2024 3:00 AM EDT) 09/29/2024 3:00 AM EDT us Alicia Zamudio REFLOW OPERATOR SCAN IMAGING Final Result * LIPID PANEL (05/03/2024 1:50 PM EDT) CHOLESTEROL, TOTAL 170 <200 mg/dL [facility] HDL CHOLESTEROL 55 > OR = 50 mg/dL [facility] TRIGLYCERIDES 85 <150 mg/dL [facility] LDL-CHOLESTEROL 97 99 mg/dL (calc) [facility] Comment: Reference range: <100 Desirable range <100 mg/dL for primary prevention; ?? <70 mg/dL for patients with CHD or diabetic patients with > or = 2 CHD risk factors. LDL-C is now calculated using the Shlomo-Renae calculation, which is a validated novel method providing better accuracy than the Friedewald equation in the estimation of LDL-C. Shlomo SS et al. HAJA. 2013;310(19): 5843-6514 (http://education.FUELUP/faq/AXP398) CHOL/HDLC RATIO 3.1 <5.0 (calc) [facility] NON-HDL CHOLESTEROL 115 <130 mg/dL (calc) [facility] Comment: For patients with diabetes plus 1 major ASCVD risk factor, treating to a non-HDL-C goal of <100 mg/dL (LDL-C of <70 mg/dL) is considered a therapeutic option. Blood Blood / Unknown 05/03/2024 1 :50 PM EDT 05/03/2024 1:51 PM EDT us Alicia Zamudio NP LAB - BLOOD DRAW Final Resul t [facility] [address] [place] [id number], [facility] [address] [place] [phone] * COMPREHENSIVE METABOLIC PANEL (05/03/2024 1:50 PM EDT) [facility] GLUCOSE 83 65 - 99 mg/dL [facility] Comment: ?Fasting reference interval UREA NITROGEN (BUN) 9 7 - 25 mg/dL [facility] CREATININE (blood) 0.68 0.50 - 1.03 mg/dL [facility] EGFR 100 > OR = 60 mL/min/1. 73m2 [facility] BUN/CREATININE RATIO SEE NOTE: [facility] Comment: ?? Not Reported: BUN and Creatinine are within ?? reference range. ? SODIUM 140 135 - 146 mmol/L [facility] POTASSIUM 4.2 3.5 - 5.3 mmol/L [facility] CHLORIDE 106 98 - 110 mmol/L [facility] CARBON DIOXIDE 25 20 - 32 mmol/L [facility] CALCIUM 9.2 8.6 - 10.4 mg/dL [facility] PROTEIN, TOTAL 7.3 6.1 - 8.1 g/dL [facility] ALBUMIN 4.4 3.6 - 5.1 g/dL [facility] GLOBULIN 2.9 1.9 - 3.7 g/dL (calc) [facility] ALBUMIN/GLOBULI N RATIO 1.5 1.0 - 2.5 (calc) [facility] BILIRUBIN, TOTAL 0.9 0.2 - 1.2 mg/dL [employer] ALKALINE PHOSPHATASE 79 37 - 153 U/L [employer] AST 16 10 - 35 U/L [facility] ALT 15 6 - 29 U/L [facility] Blood Blood / Unknown 05/03/2024 1 :50 PM EDT 05/03/2024 1:51 PM EDT us Alicia Zamudio NP LAB - BLOOD DRAW Edited Resu lt - Final [facility] [address] [address], [facility] [address] [address] * REFERRAL FOR MAMMOGRAM SCREENING (02/26/2023 3:00 AM EDT) 02/26/2023 3:00 AM EDT us Alicia Zamudio NP IMG RFL MAMMO Edited Resul t - Final * THINPREP PAP & HPV MRNA E6/E7 RFLX HPV 16,18/[address]/NG (08/21/2021 9:11 AM EST) CHLAMYDIA TRACHOMATIS RNA, TMA NOT DETECTED NOT DETECTED [facility] NEISSERIA GONORRHOEAE RNA, TMA NOT DETECTED NOT DETECTED [facility] COMMENT [facility] CLINICAL INFORMATION See Note [facility] Comment:Routine exam LMP See Note [facility] Comment:[id number] PREV. PAP [facility] PREV. BX See Note [facility] Comment:NONE GIVEN SOURCE See Note [facility] Comment:Cervix STATEMENT OF ADEQUACY See Note [facility] Comment: Satisfactory for evaluation. Endocervical/transformation zone component absent. INTERPRETATION/RESU LT See Note [facility] Comment:Negative for intraep ithelial lesion or malignancy. INFECTION See Note [employer] Comment: Shift in vaginal bossman suggestive of bacterial vaginosis. DOG CATCHER See Note [facility] [employer] [facility] Comment: ED, CT(ASCP) CT screening location: [address] [address] COMMENT [facility] [employer] [facility] HPV MRNA E6/E7 Not Detected Not Detected [facility] Comment: Methodology: Satellite Specialist-Mediated Amplification This assay detects E6/E7 viral messenger RNA (mRNA) from 14 high-risk HPV types (16,18,31,33,35,39,45,51,52,56,58,59,66,68). The analytical performance characteristics of this assay have been determined by [employer]. The modifications have not been cleared or approved by the FDA. This assay has been validated pursuant to the CLIA regulations and is used for clinical purposes. For additional information, please refer to http://Acteavo.Opsens/faq/ZXM524i8 (This link if provided for information/ educational purposes only.) CYTOLOGY Cervix uteri structure / Unknown 08/21/2021 9:11 AM EST 08/22/2021 3:24 AM EST Narrative [employer] - 08/23/2021 9:48 AM EST EXPLANATORY NOTE: The Pap is a screening test for cervical cancer. It is not a diagnostic test and is subject to false negative and false positive results. It is most reliable when a satisfactory sample, regularly obtained, is submitted with relevant clinical findings and history, and when the Pap result is evaluated along with historic and current clinical information. The analytical performance characteristics of this assay, when used to test SurePath(TM) specimens have been determined by [employer]. The modifications have not been cleared or approved by the FDA. This assay has been validated pursuant to the CLIA regulations and is used for clinical purposes. For additional information, please refer to https://Acteavo.Opsens/faq/QUA690 (This link is being provided for information/ educational purposes only.) [facility] - PATHOLOGY AND CYTOLOG Y AMBULATORY Final Result [facility] [address] [address], [facility] [address] [address] * (ABNORMAL) HEPATITIS A,B,C PANEL (09/14/2013 8:50 AM EST) HEPATITIS B SURFACE ANTIBODY POSITIVE(A) NEGATIVE [facility] HEPATITIS B SURFACE ANTIGEN NEGATIVE NEGATIVE [facility] HEPATITIS C VIRUS ANTIBODY NEGATIVE NEGATIVE [facility] HEPATITIS A ANTIBODY TOTAL NEGATIVE NEGATIVE [facility] HEPATITIS B CORE ANTIBODY NEGATIVE NEGATIVE [facility] 09/14/2013 8:50 AM EST 09/14/2013 8:53 AM EST Narrative [facility] - 09/14/2013 5:06 PM EST [facility] [employer] [address] [place] [address] [place] [id number] ORD# [id number] Crystal Ramirez MD LAB - BLOOD DRAW Edited [address] [address], [place] [phone] * HIV-1 & HIV-2 ANTIBODIES (09/14/2013 8:50 AM EST) HIV 1 AND 2 ANTIBODY SCREEN NEGATIVE NEGATIVE [facility] 09/14/2013 8:50 AM EST 09/14/2013 8:53 AM EST Narrative [facility] - 09/14/2013 6:31 PM EST [facility] [address] [place] [address] [place] [id number] ORD# [id number] Crystal Ramirez MD LAB - BLOOD DRAW Final Resu lt [address] [address], [place] [phone] from Last 3 Months or Most Recently Relevant to Health Maintenance Insurance HEALTH SAF[employer]Y NET DENTAL [employer] Member Subscriber Plan / Payer (Ef fective 2024-Present) Name:La Butler Relation to Subscriber:Self Name:La Butler Payer ID:[id number] Type:Indemnity Address: [facility] [address] [place] [address] Care Teams Rail Maintenance Worker Relationship Specialty Start Date End Date Alicia Zamudio NP [address] [place] [address] PCP - General Internal Medicine 07/08/22
--- OUTSIDE RECORDS SUMMARY | 2024-11-29 11:20 | XMS_ITS | Encounter Summary ---
Author Organization [facility] Address [address] [place] [address] Care Team Providers Care Watch Supervisor Name Role Phone Kamlesh Bob Alicia CARMONA Primary Care Provider Encounter Details Date Type Department Care Team (Late st Contact Info) Description 01/04/2022 Dental Interim Note [facility] [address] [place] [phone] Carlos Shah DDS [address] [place] [address] Social History Tobacco Use Types Packs/Day Years Used Date Smoking Tobacco: Every Day Cigarettes Smokeless Tobacco: Never Comments:about 4 a day Alcohol Use Standard Drinks/Week Comments Yes 0 (1 standard drink = 0.6 oz pur e alcohol) ocassionally Social Connections Answer Date Recorded Connectedness 0 08/21/2021 Financial Resource Strain Answer Date R ecorded Financial Resource Strain 0 2021 Stress Answer Date Recorded Stress 0 08/21/2021 Physical Activity Answer Date Recorded Physical Activity 0 03/05/2019 Food Insecurity Answer Date Recorded Food 0 08/21/2021 Transportation Needs Answer Date Record ed Transportation 0 08/21/2021 Housing Stability Answer Date Recorded Housing 0 08/21/2021 Safety and Environment Answer Date Stephen rded Safety 0 08/21/2021 Utilities Answer Date Recorded Utilities 0 08/21/2021 Employment Answer Date Recorded Stress 0 09/30/2021 Comments No Sex and Gender Information Value Date Recorded Sex Assigned at Female 04/28/2017 9:03 AM PDT Legal Sex Female 11:36 AM PDT Gender Identity Female 04/28/2017 9:03 AM PDT Sexual Orientation Straight 04/28/2017 9: 03 AM PDT COVID-19 Exposure Response Date Recorded In the last 10 days, have kirsten u been in contact with someone who was confirmed or suspected to have Coronavirus/COVID-19? No / Unsure 12/06/2021 2:10 PM EDT documented as of this encounter Plan of Treatment Upcoming Encounters Date Type Department Care Team (Late st Contact Info) Description 02/27/2025 10:20 AM EDT Office Visit [facility] [address] [place] [address] Maren Karimi RHD [address] [place] [address] documented as of this encounter Visit Diagnoses Not on filedocumented in this encounter Additional Health Concerns Assessment Noted Time PHQ-9 Depression Total Score: 3 08/21/19 22 9:39 AM PST documented as of this encounter Care Teams Watch Supervisor Relationship Specialty Start Date End Date Alicia Zamudio NP [address] [facility] [place] [place] [address] PCP - General Internal Medicine 07/08/22 documented as of this encounter
--- OUTSIDE RECORDS SUMMARY | 2024-11-29 11:20 | XMS_ITS | Clinical Summary ---
Author Organization [facility] Address [address] [place] [address] Phone Care Team Providers Care Grades 1 Thru 6 Visiting Teacher Name Role Phone Alicia Zamudio Primary Care Provider [phone] Allergies Active Allergy Reactions Criticality Noted Date Comments Lactose Diarrhea 07/25/2015 Medications EPINEPHrine (EPIPEN) 0.3 mg/0.3 mL injection Inject 0.3 mL (0.3 mg total) into the thigh 1 (one) time. 5 Active lisinopriL (PRINIVIL,ZEST RIL) 10 mg tablet Take 1 tablet (10 mg total) by mouth daily. 5 Active magnesium oxide (MAG-OX) 400 mg (241.3 elemental magnesium) tablet Take 1 tablet (400 mg total) by mouth 1 (one) time each day. 5 Active miscellaneous medical supply misc by Other route daily. 4 Active SUMAtriptan (IMITREX) 100 mg tablet Take 1 tablet (100 mg total) by mouth 1 (one) time if needed. 5 Active triamcinolone (KENALOG) 0.1 % cream Apply topically 3 (three) times a day. 8 Active acetaminophen (TYLENOL) 500 mg tablet Take 1 tablet (500 mg total) by mouth every 6 (six) hours if needed for moderate pain. Do not exceed 3 grams of Tylenol per day. 30 tablet 5 Active oxyCODONE (OXY-IR) 5 mg immediate release capsule Take 1 capsule (5 mg total) by mouth every 6 (six) hours if needed for severe pain. Max Daily Amount: 20 mg 5 capsule Active acetaminophen (TYLENOL) 325 mg capsule Take 1 capsule (325 mg total) by mouth every 4 (four) hours if needed. 11/08/19 25 Discontinue d(Stop Taking at Discharge) atorvastatin (LIPITOR) 10 mg tablet Take 1 tablet (10 mg total) by mouth daily. 4 11/08/19 25 Discontinue d(Stop Taking at Discharge) ibuprofen (ADVIL,MOTRIN) 600 mg tablet Take 1 tablet (600 mg total) by mouth every 8 (eight) hours if needed for moderate pain for up to 10 days. 30 each 5 11/18/19 25 Active Problems Problem Noted Date Diagnosed Date Smoking history 11/07/2024 HTN (hypertension) 11/06/2024 AVERY (headache) 11/06/2024 Ganglion cyst of finger of left hand 10/13/2024 Encounters Date Type Department Care Team Description 11/22/2024 10:30 AM EDT Office Visit Orthopedic Surgery [facility] [address] [facility] [address] [place] [phone] Reji Joyce MD Fibroma of finger of left hand (Primary Dx) 11/07/2024 8:45 AM EDT - 11/07/2024 10:00 AM EDT Surgery [facility] [place] [address] [place] [phone] Reji Joyce MD EXCISION MASS LEFT HAND [[id number] (CPT??)] 11/07/2024 8:40 AM EDT Anesthesia Event [facility] [place] [address] [place] [phone] Reema Pickering MD Pierce, Trudy A, CRNA 11/07/2024 6:55 AM EDT - 11/07/2024 9:59 AM EDT Hospital Encounter [facility] [place] [address] [place] [phone] Reji Joyce MD Ganglion cyst of finger of left hand Discharge Disposition: Home or Self Care 10/13/2024 3:30 PM EDT Consult Orthopedic Surgery [facility] [address] [facility] [address] [place] [phone] Reji Joyce MD Ganglion cyst of finger of left hand (Primary Dx); Numbness and tingling in both hands 09/29/2024 3:30 PM EDT Consult Orthopedic Surgery - [address] [place] [address] Josefa Matta PA Ganglion cyst of wrist, right; Ganglion cyst of finger of left hand from Last 3 Months Surgical History Surgery Date Site/Laterality Comments COLONOSCOPY 04/2015 PROCEDURE: HISTORICAL COLONOSCOPY SECTION PROCEDURE: HISTORICAL DELIVERY SECTION, LOW TRANSVERSE MANDIBLE SURGERY N/A Medical History Medical History Date Comments GERD (gastroesophageal reflux disease) 08/18/2017 DX:GERD (gastroesophageal reflux disease) IBS (irritable bowel syndrome) 08/18/2017 D X:IBS (irritable bowel syndrome) Lactose intolerance 08/18/2017 DX:Lactose i ntolerance Diverticulosis 08/18/2017 DX:Diverticulosi s Colon polyp 08/18/2017 DX:Colon polyp; COMMENT: 04/26 Hyperlipidemia Hypertension Sleep apnea Family History Medical History Relation Name Comments Other cancer Father Brain Other cancer Mother Cervical Uterine cancer Mother Diabetes Paternal Grandfather Hypertension Paternal Grandmother Relation Name Status Comments Father Mother Paternal Grandfather Paternal Grandmother Social History Tobacco Use Types Packs/Day Years Used Date Smoking Tobacco: Every Day Cigarettes 1 49 Tobacco Cessation:Ready to Q uit: Not Asked; Counseling Given: Not Answered Alcohol Use Standard Drinks/Week Comments Not Currently 0 (1 standard drink = 0.6 oz pur e alcohol) jul 2024 Interpersonal Safety Answer Date Record ed Physical Abuse 11/07/2024 Verbal Abuse 11/07/2024 Comments No Sex and Gender Information Value Date Recorded Sex Assigned at Not on file Legal Sex Female 8:50 PM EST Gender Identity Not on file Sexual Orientation Not on file Obstetrics History Last Filed Vital Signs Vital Sign Reading Time Taken Comments Blood Pressure 120/76 11/07/2024 9:44 AM EDT Pulse 56 11/07/2024 9:44 AM EDT Temperature 36.6 ??C (97.8 ??F) 11/07/2024 9:15 AM ED T Respiratory Rate 14 11/07/2024 9:15 AM EDT Oxygen Saturation 100% 11/07/2024 9:44 AM EDT Inhaled Oxygen Concentration - - Weight 117 kg (257 lb) 11/07/2024 8:16 AM EDT Height 167.6 cm (5' 6 ) 11/07/2024 8:16 AM EDT Body Mass Index 41.48 11/07/2024 8:16 AM EDT Plan of Treatment Upcoming Encounters Date Type Department Care Team (Late st Contact Info) Description 11/29/2024 11:45 AM EDT Office Visit Orthopedic Surgery - [place] [address] [facility] [address] [place] [phone] Reji Joyce MD [address] [facility] [address] [place] [address] Health Maintenance Due Date Last Done Comments Hepatitis B Vaccines (1 of 3 - 19+ 3-dose series) 01/12/1984 Pneumococcal Vaccine: 50+ Years (1 of 2 - PCV) 01/12/1984 Pneumococcal Vaccine: Pediatrics (0 to 5 Years) and At-Risk Patients (6 to 64 Years) (1 of 2 - PCV) 01/12/1984 Cervical Cancer Screening: Pap Smear 1986 Zoster Vaccines (1 of 2) 2015 Colorectal Cancer Screening: Colonoscopy 06/14/2022 Hepatitis C Screening 06/14/2022 Social Influencers of Health Screening 06/14/2022 COVID-19 Vaccine ( season) 2024 04/11/2022, 05/08/2021, 04/17/2021 Lung Cancer Screening (Low Dose CT) 06/13/2024 06/13/2023 Breast Cancer Screening 02/26/2025 02/26/2023, 07/23 Influenza Vaccine (Season Ended) 2025 Hypertension/CHF/CAD Annual BMP Blood Test 05/03/2025 05/03/2024 Depression Screening 07/29/2025 07/29/2024 DTaP,Tdap,and Td Vaccines (2 - Td or Tdap) 04/28/2026 04/28/2016 Cholesterol Screening (Lipid Panel) 05/03/2029 05/03/2024, 05/03/2024, 04/27/2023, Additional history exists RSV Immunization Adult Patients (1 - 1-dose 75+ series) 01/12/2040 HIV Screening Completed 09/14/2013 HIB Vaccines Aged Out No longer eligi ble based on patient's age to complete this topic HPV Vaccines Aged Out No longer eligi ble based on patient's age to complete this topic Hepatitis A Vaccines Aged Out No long er eligible based on patient's age to complete this topic IPV Vaccines Aged Out No longer eligi ble based on patient's age to complete this topic MMR Vaccines Aged Out No longer eligi ble based on patient's age to complete this topic Meningococcal ACWY Vaccine Aged Out N o longer eligible based on patient's age to complete this topic Meningococcal B Vaccine Aged Out No l onger eligible based on patient's age to complete this topic RSV Immunization Patients Under 20 months Aged Out No longer eligible based on patient's age to complete this topic Varicella Vaccines Aged Out No longer eligible based on patient's age to complete this topic Procedures Procedure Name Priority Date/Time Associated Diagnosis Comments TISSUE EXAM Routine 11/07/2024 9:00 AM EDT Ganglion cyst of finger of left hand NV EXC TUMOR/VASCULAR MALFORMATION SOFT TISSUE HAND/FNGR SUBQ < 1.5 CM 11/07/2024 8:42 AM EDT Ganglion cyst of finger of left hand Special Needs CONFIRMED LEFT HAND W/ROMEL CB 11/01 PROCEDURAL ECG Routine 11/07/2024 7:52 AM EDT XR HAND 3+ VIEWS LEFT Routine 09/29/2024 3:[address] LUNG SCREENING LOW DOSE Routine 06/13/2023 9:44 AM EST Encounter for screening for malignant neoplasm of respiratory organs POLO SCREENING DIGITAL Routine 02/26/2023 11:56 AM EDT Encounter for screening mammogram for malignant neoplasm of breast from Last 3 Months or Most Recently Relevant to Health Maintenance Results * Tissue exam (11/07/2024 9:00 AM EDT) Final Diagnosis Soft tissue, left index finger-excis ion: -FIBROMA OF TENDON SHEATH 11/08/2024 1:05 PM EDT [facility] Gross Description A. Hand, Digit Left, index mass: Labeled finger L, left inde . Received in formalin is a 1.2 x 1 x 0.8 cm gray-white firm nodule. The specimen is inked blue. The cut surfaces are dense gray-white fibrous, and encapsulated . The specimen is entirely submitted in one cassette, three pieces. AIDE 11/08/2024 1:05 PM EDT [facility] Disclaimer Unless otherwise specified, all tissue is 10% NB formalin fixed and paraffin embedded. 11/08/2024 1:05 PM EDT [facility] Tissue Structure of digit of left hand / Unknown 11/07/2024 9:00 AM EDT 11/07/2024 9:45 AM EDT Reji Joyce MD LAB PATHOLOGY ORDERABLES Final R esult [facility] [address] [place] [address], [place] [phone] * ECG 12 lead - Procedural (No Charge) (11/07/2024 7:52 AM EDT) Ventricular Rate ECG 59 BPM GEMUSE Atrial Rate 59 BPM GEMUSE P-R Interval 184 ms GEMUSE QRS Duration 84 ms GEMUSE Q-T Interval 470 ms GEMUSE QTc 465 ms GEMUSE P Wave Lyman 25 degrees GEMUSE R Lyman 37 degrees GEMUSE T Lyman 92 degrees GEMUSE ECG Interpretation Sinus bradycardia with sinus arrhythmia Otherwise normal ECG When compared with ECG of 15-NOV-2013 09:57, No significant change was found Confirmed by SILVIA PEREZ ([id number]) on 11/08/2024 12:46:16 PM GEMUSE 11/07/2024 7:52 AM EDT 11/08/2024 12:46 PM EDT Reema Pickering MD ECG ORDERABLES Final Result GEMUSE * XR Hand 3+ Views Left (09/29/2024 3:43 PM EDT) Anatomical Region Laterality Modality Upper Extremities, Hand Left Computed Radiography Narrative 09/29/2024 4:21 PM EDT Date of Visit: 09/29/2024 Reason for visit: Left hand cyst Views: AP, lateral, oblique left hand Comparison: None Findings: No fracture, dislocation or lytic lesions. ??No bony abnormalities no calcifications seen Impression: Normal left hand radiograph us Josefa OVERTON IMG XR PROCEDURES Final Resul t * CT LUNG SCREENING LOW DOSE (06/13/2023 9:44 AM EST) Anatomical Region Laterality Modality Computed Tomogra phy 06/09/2023 11:3 3 AM EST Narrative 06/13/2023 9:44 AM EST [facility] Diagnostic Imaging Department [address] [place] [address] Patient: ??LA BUTLER ?/Age/Sex: 1965 - 58 - F Unit#: ??[id number] ? Location/Status: ??SPDICATLS/REG CLI ? Mnemonic/Ordering Site: ??CTLUNGLD/SPCT Ordering Physician: ??PACO LEW MD CT Lung Screening Low Dose - 06/09/23 - 1139 Report Status:Signed PROCEDURE: CT Lung Screening Low Dose INDICATION: LOW DOSE LUNG SCREENING Current smoker with 34.5 pack year total COMPARISON: None. TECHNIQUE: Noncontrast low dose chest CT was performed per lung cancer CT screening protocol. [employer] VCT dose reduction, utilizing iterative reconstruction. Total exam ??DLP 150.77 (mGy-cm) FINDINGS: The heart is within normal limits in size. ??No significant coronary artery calcification is seen Thoracic aorta is normal in caliber. There is no evidence for middle mediastinal lymphadenopathy. The pulmonary jose manuel are symmetric, but mild adenopathy cannot be excluded without IV contrast material. No CT evidence of tracheal or endobronchial mass. No evidence of suspicious pulmonary nodule. ?? No evidence of confluent airspace opacity, lung consolidation, or pleural effusion. The visualized portion of the upper abdomen is grossly unremarkable however technique was not optimized for assessment. The included portion of the skeleton demonstrates no evidence of aggressive bony lesion. IMPRESSION: No CT evidence of suspicious pulmonary nodule Lung Rads Category: 1 - Negative. Continue annual screening with low-dose CT in 12 months G0297 G9557 G9551 G9637 Dictating Physician: ??ADONIS MORGAN MD Electronically Signed by: ??ADONIS MORGAN MD Dic Date/Time: ??06/13/23939 Sign date/Time: ??06/13/23943 Procedure Note Adonis Morgan MD - 08/18/2023 [facility] Diagnostic Imaging Department [address] [place] [address] Patient: LA BUTLER/Age/Sex: 1965 - 58 - F Unit#: [id number] Location/Status: SPDICATLS/REG CLI Mnemonic/Ordering Site: [facility] Ordering Physician: PACO LEW MD CT Lung Screening Low Dose - 06/09/23 - 1139 Report Status:Signed PROCEDURE: CT Lung Screening Low Dose INDICATION: LOW DOSE LUNG SCREENING Current smoker with 34.5 pack year total COMPARISON: None. TECHNIQUE: Noncontrast low dose chest CT was performed per lung cancerCT screening protocol. [employer] VCT dose reduction, utilizing iterative reconstruction. Total exam DLP 150.77 (mGy-cm) FINDINGS: The heart is within normal limits in size. No significant coronaryartery calcification is seen Thoracic aorta is normal in caliber. There is no evidence for middle mediastinal lymphadenopathy. The pulmonaryhila are symmetric, but mild adenopathy cannot be excluded without IVcontrast material. No CT evidence of tracheal or endobronchial mass. No evidence of suspicious pulmonary nodule. No evidence of confluentairspace opacity, lung consolidation, or pleural effusion. The visualized portion of the upper abdomen is grossly unremarkablehowever technique was not optimized for assessment. The included portion of the skeleton demonstrates no evidence ofaggressive bony lesion. IMPRESSION: No CT evidence of suspicious pulmonary nodule Lung Rads Category: 1 - Negative. Continue annual screening with low-doseCT in 12 months G0297 G9557 G9551 G9637 Dictating Physician: ADONIS MORGAN MD Electronically Signed by: ADONIS MORGAN MD Dic Date/Time: 06/13/23939 Sign date/Time: 06/13/23943 Paco Lew MD IM CT PROCEDURES Final Result * POLO SCREENING DIGITAL (02/26/2023 11:56 AM EDT) Anatomical Region Laterality Modality Mammography 02/26/2023 10:4 4 AM EDT Narrative 02/26/2023 11:56 AM EDT [facility] Diagnostic Imaging Department [address] [place] [id number] Patient: ??LA BUTLER ?/Age/Sex: 1965 - 58 - F Unit#: ??[id number] ? Location/Status: ??SPDIMAM/REG CLI ? Mnemonic/Ordering Site: ??DIGSC/SPMAM Ordering Physician: ??QUYNH ERAZO [facility] Screening Digital - 02/26/23 - 1100 Report Status:Signed EXAM: [facility] Screening Digital EXAM DATE AND TIME: 02/26/2023 11:01 AM HISTORY: ??Routine screening mammogram COMPARISON: ??07/22/2021, 2016. TECHNIQUE: Bilateral digital breast tomosynthesis was performed in the CC and MLO projections. Computer aided detection with [employer] 3D 3.1 was employed. TISSUE DENSITY: b. There are scattered areas of fibroglandular density. FINDINGS: No suspicious masses, grouped microcalcifications, or areas of architectural distortion are seen. The skin and vascularity are unremarkable. ??Scattered benig n calcifications are present. ??Stable, small over nodular asymmetry in the posterior inferior left breast is again noted. IMPRESSION: Stable mammographic appearance of the breasts. ??No evidence of malignancy is seen. A negative mammogram in the presence of a clinically suspicious palpable abnormality does not preclude the possibility of malignancy or alter the indications for biopsy. BI-RADS: ??Category 2: Benign RECOMMENDATION(S): 1: Routine screening mammogram BILATERAL in 1 year. Dictating Physician: ??SOFI SARABIA MD Electronically Signed by: ??SOFI SARABIA MD Dic Date/Time: ??02/26/23 1155 Sign date/Time: ??02/26/23 1156 Procedure Note Sofi Sarabia MD - 08/18/2023 [facility] Diagnostic Imaging Department [address] [place] [address] Patient: YOSEFLA /Age/Sex: 1965 - 58 - F Unit#: [id number] Location/Status: [facility] CLI Mnemonic/Ordering Site: [facility] Ordering Physician: QUYNH ERAZO [facility] Screening Digital - 02/26/23 - 1100 Report Status:Signed EXAM: [facility] Screening Digital EXAM DATE AND TIME: 02/26/2023 11:01 AM HISTORY: Routine screening mammogram COMPARISON: 07/22/2021, 2016. TECHNIQUE: Bilateral digital breast tomosynthesis was performed in the CCand MLO projections. Computer aided detection with [employer] 3D 3.1was employed. TISSUE DENSITY: b. There are scattered areas of fibroglandular density. FINDINGS: No suspicious masses, grouped microcalcifications, or areas ofarchitectural distortion are seen. The skin and vascularity are unremarkable. Scatteredbenig n calcifications are present. Stable, small over nodular asymmetry inthe posterior inferior left breast is again noted. IMPRESSION: Stable mammographic appearance of the breasts. No evidence of malignancyis seen. A negative mammogram in the presence of a clinically suspicious palpable abnormality does not preclude the possibility of malignancy or alter the indications for biopsy. BI-RADS: Category 2: Benign RECOMMENDATION(S): 1: Routine screening mammogram BILATERAL in 1 year. Dictating Physician: SOFI SARABIA MD Electronically Signed by: SOFI SARABIA MD Dic Date/Time: 02/26/23 1155 Sign date/Time: 02/26/23 1156 Quynh OVERTON IMG BI PROCEDURES Final Result from Last 3 Months or Most Recently Relevant to Health Maintenance Insurance [facility] tracx PLAN Advance Directives * Full Code - Default (Latest Code Status on File) Date Activated Date Inactivated Comments 11/07/2024 7:51 AM 11/07/2024 12:06 PM This is ord er is used when code status has not been discussed with the patient, or code status is otherwise unknown/unconfirmed To update the patient's code status, place a code status order. Do not modify or discontinue any currently active code status orders. Care Teams Grades 1 Thru 6 Visiting Teacher Relationship Specialty Start Date End Date Alicia Zamudio [address] [place] [address] PCP - General 09/21/24
--- OUTSIDE RECORDS SUMMARY | 2024-11-29 11:20 | XMS_ITS | Encounter Summary ---
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 on file Not on file Not on file documented as of this encounter Plan of Treatment Upcoming Encounters Date Type Department Care Team (Late st Contact Info) Description 02/27/2025 10:20 AM EDT [facility] [address] [place] [phone] Maren Karimi RHD [address] [place] [address] documented as of this encounter Visit Diagnoses Not on filedocumented in this encounter Additional Health Concerns Assessment Noted Time PHQ-9 Depression Total Score: 6 04/27/20 23 9:57 AM PDT documented as of this encounter Care Teams Safety Instruction Police Officer Relationship Specialty Start Date End Date Alicia Zamudio NP [address] [place] [address] PCP - General Internal Medicine 07/08/22 documented as of this encounter
--- OUTSIDE RECORDS SUMMARY | 2024-11-29 11:20 | XMS_ITS | Encounter Summary ---
Author Organization [facility] Address [address] [place] [address] Care Team Providers Care [employer]or [employer] Name Role Phone Kamlesh Bob Alicia CARMONA Primary Care Provider Encounter Details Date Type Department Care Team (Late st Contact Info) Description 12/19/2021 Dental Interim Note [facility] [address] [place] [phone] Carlos Shah DDS [address] [place] [address] Social History Tobacco Use Types Packs/Day Years [...] Office Visit [facility] [address] [place] [address] Maren Karimi RHD [address] [place] [address] documented as of this encounter Visit Diagnoses Not on filedocumented in this encounter Additional Health Concerns Assessment Noted Time PHQ-9 Depression Total Score: 3 08/21/19 22 9:39 AM PST documented as of this encounter Care Teams [employer] Relationship Specialty Start Date End Date Alicia Zamudio NP [address] [facility] [place] [address] PCP - General Internal Medicine 07/08/22 documented as of this encounter
== END 2024-11-29 11:29 | disposition home or self-care (01) ==
LOC: HO.HSMS 10:06
PROVIDERS: PCP Nurse Practitioner; Visit Provider Nurse Practitioner Family
DX: G47.33 Obstructive sleep apnea (adult) (pediatric) (principal); G43.109 Migraine with aura, not intractable, without status migrainosus
CPT/HCPCS: 99214

== ENCOUNTER → 2024-11-29 10:05 | Outpatient (BNVA) | payer OTHER, SELFPAY | PROVIDERS: PCP Nurse Practitioner; Visit Provider Nurse Practitioner Family | DX: G47.33 Obstructive sleep apnea (adult) (pediatric) (principal); G43.109 Migraine with aura, not intractable, without status migrainosus; Z99.89 Dependence on other enabling machines and devices | CPT/HCPCS: 99212 ==